=== PATIENT | female | born 1950 | race Caucasian/White ===

== ENCOUNTER 2016-10-11 10:02 | Emergency (ER) | payer MEDICARE, OTHER ==
[2016-10-11 10:16] VITALS: BP 152/82
[2016-10-11] MEDS ORDERED: Ondansetron 4 MG/2 ML SDV IVPUSH ONE (10:39)
--- NOTE | 2016-10-11 10:41 | EDM.PDOC ---
ED HPI GENERAL MEDICAL PROBLEM - General Chief Complaint: Gastrointestinal Problem Stated Complaint: RECTORAL BLEEDING Time Seen by Provider: 10/11/16 10:16 Source of Information: Reports: Patient, RN notes reviewed History Limitations: Reports: No Limitations - History of Present Illness INITIAL COMMENTS - FREE TEXT/NARRATIVE: The patient states that she underwent a colonoscopy in July 2016 which demonstrated sigmoid diverticulosis and polyps. She states that around 22:30 last night she developed lower abdominal pain and low back pain. Around 23:00 she developed dark watery diarrhea, then around 23: 30 she developed bright red blood per rectum. She presents with continued abdominal pain and bright red blood per rectum. She has had nausea, but no emesis. No recent fever, although she reports feeling chilled and clammy whenever she has diarrhea. She has not tried any home remedies. No prior similar symptoms. Lower Abdomen Pain Score (Numeric/FACES): 3 - Related Data Allergies Allergy/AdvReac Type Severity Reaction Status Date / Time No Known Allergies Allergy Verified 10/11/16 10:16 Home Meds: Home Meds Albuterol [Ventolin HFA] 2 puff INH Q4H PRN 10/11/16 [History] Aspirin/Acetaminophen/Caffeine [Headache Relief Gelcap] 1 tab PO DAILY 10/11/16 [History] Cholecalciferol (Vitamin D3) [Vitamin D3] 1,000 units PO DAILY 10/11/16 [History ] Cranberry Fruit Extract [Cranberry] 425 mg PO DAILY 10/11/16 [History] Halobetasol Propionate [Ultravate] 1 applic TOP DAILY 10/11/16 [History] Losartan [Cozaar] 100 mg PO DAILY 10/11/16 [History] Multivitamin [Multivitamins] 1 tab PO DAILY 10/11/16 [History] Nitrofurantoin Monohyd/M-Cryst [Macrobid 100 mg Capsule] 100 mg PO DAILY PRN 04/19 [History] Ranitidine [Zantac] 150 mg PO DAILY PRN 10/11/16 [History] Past Medical History Cardiovascular History: Reports: Hypertension Respiratory History: Reports: Asthma (suspected, not confirmed) Gastrointestinal History: Reports: Colon polyp, Diverticulosis Genitourinary History: Reports: Urinary incontinence (stress) - Past Surgical History HEENT Surgical History: Reports: Tonsillectomy GI Surgical History: Reports: Colonoscopy Female Surgical History: Reports: section (x 3), Other (see below) ( Uterine polypectomy) Social & Family History - Tobacco Use Smoking Status *Q: Former Smoker Years of Tobacco use: 3 Packs/Tins Daily: 1 Used Tobacco, but Quit: Yes Month Tobacco Last Used: 1971 - Caffeine Use Caffeine Use: Reports: None - Alcohol Use Alcohol Use History: Yes Alcohol Use Frequency: Socially - Recreational Drug Use Recreational Drug Use: No - Living Situation & Occupation Living situation: Reports: , with spouse Occupation: retired ED [employer] GENERAL - Review of Systems Review Of Systems: See Below Constitutional: Reports: No Symptoms HEENT: Reports: No Symptoms Respiratory: Reports: No Symptoms Cardiovascular: Reports: No Symptoms Endocrine: Reports: No Symptoms GI/Abdominal: Reports: No Symptoms : Reports: No Symptoms Musculoskeletal: Reports: No Symptoms Skin: Reports: No Symptoms Neurological: Reports: No Symptoms Psychiatric: Reports: No Symptoms Hematologic/Lymphatic: Reports: No Symptoms Immunologic: Reports: No Symptoms ED EXAM, GI/ABD - Physical Exam Exam: See Below Exam Limited By: No Limitations General Appearance: Alert, Mild Distress (Appears uncomfortable) Eyes: Bilateral: Normal Appearance, EOMI Ears: Normal External Exam, Hearing Grossly Normal, Normal TMs Nose: Normal Inspection, No Blood Throat/Mouth: Normal Inspection, Normal Lips, Normal Voice, No Airway Compromise Head: Atraumatic, Normocephalic Neck: Normal Inspection, Full Range of Motion Respiratory/Chest: No Respiratory Distress, Lungs Clear, Normal Breath Sounds, No Accessory Muscle Use Cardiovascular: Normal Peripheral Pulses, Regular Rate, Rhythm, No Gallop, No JVD, No Murmur, No Rub GI/Abdominal: Normal Bowel Sounds, Soft, No Organomegaly, No Distention, No Abnormal Bruit, No Mass, Tenderness (Primarily in the left upper quadrant, less in the left lower quadrant. Essentially nontender elsewhere.) (Female) Exam: Deferred Rectal (Female) Exam: Normal Exam, Normal Rectal Tone, Heme + Stool Back Exam: No: CVA Tenderness (L), CVA Tenderness (R) Extremities: Normal Inspection, Normal Range of Motion, No Pedal Edema, Normal Capillary Refill Neurological: Alert, Oriented, Normal Cognition, No Motor/Sensory Deficits Psychiatric: Normal Affect Skin Exam: Warm, Dry, Intact, Normal Color, No Rash Lymphatic: No Adenopathy Course - Vital Signs Last Recorded V/S: Last Vital Signs Temp 36.5 C 10/11/16 10:09 Pulse 88 10/11/16 10:09 Resp 16 10/11/16 10:09 BP 152/82 H 10/11/16 10:09 Pulse Ox 96 10/11/16 10:09 - Orders/Labs/Meds Orders: Active Orders 24 hr Category Date Time Status C DIFFICILE BY PCR W/NAP1 [MOLEC] Stat Lab 10/11/16 15:25 Received CULTURE STOOL + SHIGATOX [RM] Stat Lab 10/11/16 15:28 Ordered WBC, STOOL [OP] Stat Lab 10/11/16 15:28 Ordered Sodium Chloride 0.9% [Normal Saline] 1,000 ml Med 10/11/16 10:45 Active IV ASDIRECTED Sodium Chloride 0.9% [Saline Flush] Med 10/11/16 11:17 Active 10 ml FLUSH ONETIME PRN Medication Orders Sodium Chloride (Normal Saline) 1,000 mls @ 150 mls/hr IV ASDIRECTED HAYLIE Last Admin: 10/11/16 10:55 Dose: 150 mls/hr Sodium Chloride (Saline Flush) 10 ml FLUSH ONETIME PRN PRN Reason: IV FLUSH Last Admin: 10/11/16 11:46 Dose: 10 ml Labs: Laboratory Tests 10/11/16 10/11/16 10/11/16 Range/Units 10:50 10:50 13:00 WBC 18.28 H (3.98-10.04) K/mm3 RBC 4.91 (3.98-5.22) M/mm3 Hgb 14.8 (11.2-15.7) gm/L Hct 44.5 (34.1-44.9) % MCV 90.6 (79.4-94.8) fl MCH 30.1 (25.6-32.2) pg MCHC 33.3 (32.2-35.5) g/dl RDW Std Deviation 45.9 (36.4-46.3) fL Plt Count 282 (182-369) K/mm3 MPV 10.1 (9.4-12.3) fl Neutrophils % (Manual) 80 H (40-60) % Band Neutrophils % 4 (0-10) % Lymphocytes % (Manual) 9 L (20-40) % Atypical Lymphs % 0 % Monocytes % (Manual) 6 (2-10) % Eosinophils % (Manual) 1 (0.7-5.8) % Basophils % (Manual) 0 L (0.1-1.2) Platelet Estimate Adequate RBC Morph Comment Normal Sodium 138 (136-145) mEq/L Potassium 3.9 (3.5-5.1) mEq/L Chloride 103 (98-107) mEq/L Carbon Dioxide 23 (21-32) mEq/L Anion Gap 15.9 H (5-15) BUN 24 H (7-18) mg/dL Creatinine 1.2 H (0.55-1.02) mg/dL Est Cr Clr Drug Dosing 36.47 mL/min Estimated GFR (MDRD) 45 (>60) mL/min BUN/Creatinine Ratio 20.0 H (14-18) Glucose 182 H (80-115) mg/dL Calcium 8.9 (8.5-10.1) mg/dL Total Bilirubin 0.7 (0.2-1.0) mg/dL AST 17 (15-37) U/L ALT 26 (14-59) U/L Alkaline Phosphatase 61 (46-116) U/L Total Protein 7.6 (6.4-8.2) g/dl Albumin 4.1 (3.4-5.0) g/dl Globulin 3.5 gm/dL Albumin/Globulin Ratio 1.2 (1-2) Lipase 60 L (73-393) U/L Urine Color Yellow (Yellow) Urine Appearance Clear (Clear) Urine pH 5.5 (5.0-8.0) Ur Specific [place] 1.015 (1.005-1.030) Urine Protein Trace H (Negative) Urine Glucose (UA) Negative (Negative) Urine Ketones Trace H (Negative) Urine Occult Blood 2+ H (Negative) Urine Nitrite Negative (Negative) Urine Bilirubin Negative (Negative) Urine Urobilinogen 0.2 (0.2-1.0) Ur Leukocyte Esterase Negative (Negative) Urine RBC 10-20 H (0-5) /hpf Urine WBC 0-5 (0-5) /hpf Ur Epithelial Cells 0-5 (0-5) /hpf Urine Bacteria Few (FEW) /hpf Urine Mucus Not seen (FEW) /hpf Meds: Medications Generic Name Dose Route Start Last Admin Trade Name Freq PRN Reason Stop Dose Admin Sodium Chloride 1,000 mls @ 150 mls/hr 10/11/16 10:45 10/11/16 10:55 Normal Saline IV 150 mls/hr ASDIRECTED HAYLIE Administration Sodium Chloride 10 ml 10/11/16 11:17 10/11/16 11:46 Saline Flush FLUSH 10 ml ONETIME PRN Administration IV FLUSH Discontinued Medications Generic Name Dose Route Start Last Admin Trade Name Freq PRN Reason Stop Dose Admin Diatrizoate Meglum/Diatrizoate Sod 90 ml 10/11/16 11:17 10/11/16 11:45 Gastrografin 37% PO 10/11/16 11:18 90 ml ONETIME ONE Administration Hydromorphone HCl 1 mg 10/11/16 15:46 Dilaudid IVPUSH 10/11/16 15:47 ONETIME ONE Iopamidol 100 ml 10/11/16 11:17 10/11/16 11:46 Isovue-300 (61%) IVPUSH 10/11/16 11:18 100 ml ONETIME ONE Administration Levofloxacin 500 mg 10/11/16 15:19 Levaquin PO 10/11/16 15:20 ONETIME STA Metronidazole 500 mg 10/11/16 15:20 Flagyl PO 10/11/16 15:21 ONETIME STA Ondansetron HCl 4 mg 10/11/16 10:39 10/11/16 10:56 Zofran IVPUSH 10/11/16 10:40 4 mg ONETIME ONE Administration - Radiology Interpretation Free Text/Narrative:: CT of the abdomen and pelvis with oral and IV contrast is read by Dr. Ferro as: 1. Wall thickening is seen diffusely within the colon involving the transverse, left colon, sigmoid colon and rectum. This is compatible with a nonspecific colitis. 2. Other incidental findings as described above. - Re-Assessments/Exams Free Text/Narrative Re-Assessment/Exam: 10/11/16 15:18 Test results discussed with the patient and her . I am recommending starting the patient on oral Levaquin and Flagyl after we obtain stool samples for studies. The patient may be discharged home, if she wishes, however, she states that she is very uncomfortable, and is considering my offer to transfer her to [place]. 10/11/16 15:53 The patient and her would like the patient to be transferred to [facility]. Case discussed with Dr. Cruz, Hospitalist at [facility], at 15:51. He accepts the patient for transfer. The patient and her would like to transfer by private vehicle. I believe this is acceptable. I will have the nurse leave the patient IV in place , however, I have instructed that they need to go directly to [facility], and they have agreed. Departure - Departure Time of Disposition: 15:54 Disposition: DC/Tfer to [facility] 02 Condition: fair Clinical Impression: Colitis - Discharge Information - My Orders Last 24 Hours: My Active Orders 10/11/16 10:45 Sodium Chloride 0.9% [Normal Saline] 1,000 ml IV ASDIRECTED 10/11/16 11:17 Sodium Chloride 0.9% [Saline Flush] 10 ml FLUSH ONETIME PRN 10/11/16 15:25 C DIFFICILE BY PCR W/NAP1 [MOLEC] Stat 10/11/16 15:28 CULTURE STOOL + SHIGATOX [RM] Stat WBC, STOOL [OP] Stat - Assessment/Plan Last 24 Hours: My Active Orders 10/11/16 10:45 Sodium Chloride 0.9% [Normal Saline] 1,000 ml IV ASDIRECTED 10/11/16 11:17 Sodium Chloride 0.9% [Saline Flush] 10 ml FLUSH ONETIME PRN 10/11/16 15:25 C DIFFICILE BY PCR W/NAP1 [MOLEC] Stat 10/11/16 15:28 CULTURE STOOL + SHIGATOX [RM] Stat WBC, STOOL [OP] Stat
[2016-10-11] MEDS ORDERED: Sodium Chloride 0.9% 1,000 ML IV SCH (10:45)
[2016-10-11] MEDS ORDERED: Diatrizoate Meglumine/Diatrizoate Sodium 37% 120 ML Bottle PO ONE (11:17)
[2016-10-11] MEDS ORDERED: Iopamidol 612 MG/ML 100 ML Bottle IVPUSH ONE (11:17)
[2016-10-11] MEDS ORDERED: Sodium Chloride 0.9% 10 ML Syringe FLUSH PRN (11:17)
--- NOTE | 2016-10-11 12:24 | CT ---
CT abdomen and pelvis Technique: Multiple axial sections were obtained from above the dome of the diaphragm inferiorly through the pubic symphysis. Intravenous and oral contrast was utilized. Delayed images were also obtained through the bladder. Comparison: No previous abdominal imaging. Findings: Visualized lung bases shows nothing acute. Liver shows no focal parenchymal abnormality. Gallbladder shows no calcified gallstones. Spleen size is normal. Adrenal glands show no nodule. Pancreas is within normal limits. Aorta shows no aneurysmal dilatation. No retroperitoneal adenopathy is seen. Bowel wall thickening is seen throughout the transverse, left and sigmoid colon as well as mild bowel wall thickening within the rectum. This is compatible with a nonspecific colitis. No small bowel dilatation or small bowel wall thickening is seen. Appendix felt to be visualized which is normal. Slight increased stool is seen within the terminal ileum. Mild increased stool within the cecum is seen. Delayed images shows contrast within the bladder. Bone window settings were reviewed which shows scattered degenerative change within the spine. Small fat-containing umbilical hernia is incidentally noted. Impression: 1. Wall thickening is seen diffusely within the colon involving the transverse, left colon, sigmoid colon and rectum. This is compatible with a nonspecific colitis. 2. Other incidental findings as described above. Diagnostic code #3
[2016-10-11] MEDS ORDERED: Levofloxacin 500 MG Tab PO STA (15:19)
[2016-10-11] MEDS ORDERED: metroNIDAZOLE 500 MG Tab PO STA (15:20)
[2016-10-11] MEDS ORDERED: HYDROmorphone 1 MG/ML Syringe IVPUSH ONE (15:46)
== END 2016-10-11 16:32 ==
LOC: JD.ED 10:02
DX: K52.9 Noninfective gastroenteritis and colitis, unspecified (principal); Z86.010 Personal history of colon polyps; R11.0 Nausea; Z79.82 Long term (current) use of aspirin; Z79.899 Other long term (current) drug therapy; I10 Essential (primary) hypertension; N39.3 Stress incontinence (female) (male); Z87.891 Personal history of nicotine dependence
CPT/HCPCS: 36415; 74177; 80053; 81001; 83690; 85025; 87046; 87493; 87899; 89055; 96361; 96374; 96375; 99285; A9270; J1170; J2405; J7040; J7050; Q9963; Q9967; 87427